=== PATIENT | female | born 1950 | race Caucasian/White ===

== ENCOUNTER 2017-04-21 08:33 | Inpatient (IN) | payer MEDICARE, OTHER ==
[2017-04-21] MEDS ORDERED: HYDROMORPHONE 1 MG/ML SYRINGE IV PRN (12:41)
[2017-04-21] MEDS ORDERED: NALOXONE HYDROCHLORIDE 0.4 MG/ML SOL IV PRN (12:41)
[2017-04-21] MEDS ORDERED: MORPHINE SULFATE 10 MG/ML SOL IV PRN (13:06)
[2017-04-21] MEDS ORDERED: NICOTINE 21 MG PATCH TD PRN (13:08)
[2017-04-21] MEDS: SODIUM CHLORIDE 0.9% 1000ML 1,000 ML IV SCH ×2 (13:11→14:09)
[2017-04-21] MEDS: SODIUM CHLORIDE 0.9% FLUSH 10 ML SOL IV PRN ×2 (13:11→14:30)
[2017-04-21] MEDS ORDERED: ONDANSETRON HCL 4 MG/2 ML SOL IV PRN (13:13)
[2017-04-21] MEDS: ENOXAPARIN 40 MG SOL SC SCH (13:24)
[2017-04-21] MEDS ORDERED: LABETALOL HYDROCHLORIDE 5 MG/ML SOL IV PRN (13:27)
[2017-04-21] MEDS: SOLUMEDROL 125 MG/2 ML 125 MG/2 ML PDS IV SCH ×2 (14:30→20:31)
[2017-04-21] MEDS: DEXTROSE/SALINE 0.45%/KCL10MEQ 1,000 ML/1,000 ML SOL IV SCH ×3 (15:19→23:48)
[2017-04-22] MEDS: DEXTROSE/SALINE 0.45%/KCL10MEQ 1,000 ML/1,000 ML SOL IV SCH ×2 (03:52→16:57)
[2017-04-22 07:18] LABS: BASOPHILS % (AUTO) 0 % (0-3); EOSINOPHILS % (AUTO) 0 % (0-9); HEMATOCRIT 32 % (35-47); MEAN CORPUSCULAR HGB CONC 38.2 gm/dl (32.0-36.0); MEAN CORPUSCULAR VOLUME 87 fL (81-99); MONOCYTES % (AUTO) 5.2 % (0-12); NEUTROPHILS % (AUTO) 77.3 % (37-80)
[2017-04-22 07:30] LABS: ALBUMIN 2.6 gm/dl (3.4-5.0); POTASSIUM 4.4 mMol/L (3.5-5.1)
[2017-04-22] MEDS ORDERED: DEXTROSE/SALINE 0.45%/KCL10MEQ 1,000 ML/1,000 ML SOL IV SCH (07:35)
[2017-04-22 07:36] LABS: ANISOCYTOSIS SLIGHT AMT
[2017-04-22] MEDS ORDERED: APAP/HYDROCODONE 325/5 TAB PO PRN (07:38)
[2017-04-22] MEDS: SODIUM CHLORIDE 0.9% 1000ML 1,000 ML IV SCH ×3 (08:55→20:14)
[2017-04-22] MEDS: ASPIRIN EC 81 MG PO SCH (10:01)
[2017-04-22] MEDS: LISINOPRIL 20 MG TAB PO SCH (10:02)
[2017-04-22] MEDS: SOLUMEDROL 125 MG/2 ML 125 MG/2 ML PDS IV SCH ×2 (10:02→20:09)
[2017-04-22] MEDS: METOPROLOL TARTRATE 25 MG TAB PO SCH ×2 (10:02→20:09)
[2017-04-22] MEDS: ENOXAPARIN 40 MG SOL SC SCH (14:41)
[2017-04-22] MEDS: SODIUM CHLORIDE 0.9% FLUSH 10 ML SOL IV PRN (15:45)
[2017-04-22] MEDS ORDERED: PRAVASTATIN SODIUM 20 MG TAB PO SCH (21:00)
[2017-04-23 02:08] VITALS: O2SAT 97
[2017-04-23] MEDS: SODIUM CHLORIDE 0.9% 1000ML 1,000 ML IV SCH ×2 (02:27→09:22)
[2017-04-23 07:24] LABS: BASOPHILS % (AUTO) 0 % (0-3); EOSINOPHILS % (AUTO) 0 % (0-9); HEMATOCRIT 33 % (35-47); MEAN CORPUSCULAR VOLUME 89 fL (81-99); MONOCYTES % (AUTO) 4.1 % (0-12); NEUTROPHILS % (AUTO) 83.4 % (37-80)
[2017-04-23 07:47] VITALS: BP 150/77; PULSE 66; RESP 16; TEMP 97.9
[2017-04-23 07:50] LABS: ALBUMIN 2.9 gm/dl (3.4-5.0); CALCIUM 8.4 mg/dl (8.5-10.1)
[2017-04-23] MEDS ORDERED: PNEUMOCOCCAL VACCINE 0.5 ML SOL IM ONE (08:28)
[2017-04-23] MEDS: LISINOPRIL 20 MG TAB PO SCH (08:42)
[2017-04-23] MEDS: ASPIRIN EC 81 MG PO SCH (08:42)
[2017-04-23] MEDS: METOPROLOL TARTRATE 25 MG TAB PO SCH (08:42)
== END 2017-04-23 09:40 | disposition home or self-care (01) | DRG 440 ==
LOC: RAD 08:33 → EDSTATUS 09:00 → UNDOADMIN 12:19 → ACUTE CARE 12:19
PROVIDERS: ADMIT Family Medicine; ATTEND Nurse Practitioner
DX: K85.90 Acute pancreatitis without necrosis or infection, unspecified (principal); I10 Essential (primary) hypertension; Z72.0 Tobacco use
CPT/HCPCS: 36415; 74183; 80053; 80061; 85025; 90732; J1650; J2930; A9575

== ENCOUNTER 2017-09-20 09:40 | Day surgery (SDC) | payer MEDICARE, OTHER ==
[~2017-09-20 09:40] MED LIST: LIDOCAINE HCL 1% MPF SOL ONE; PROPOFOL 500 MG/50 ML EMU IV ONE
[2017-09-20 11:27] VITALS: RESP 20; O2SAT 96
[2017-09-20 11:46] VITALS: BP 128/65; PULSE 75; TEMP 97.4
== END 2017-09-20 12:00 | disposition home or self-care (01) | DRG 392 ==
LOC: SURG 09:40
PROVIDERS: ATTEND Surgery
DX: K52.831 Collagenous colitis (principal)
CPT/HCPCS: J2001; J2704

== ENCOUNTER 2018-07-02 13:21 | Emergency (ER) | payer OTHER ==
[2018-07-02] MEDS ORDERED: CLOPIDOGREL 75 MG TAB ONE (13:25)
[2018-07-02] MEDS ORDERED: NITROGLYCERIN 0.4 MG TAB SL PRN (13:34)
[2018-07-02] MEDS ORDERED: SODIUM CHLORIDE 0.9% FLUSH 10 ML SOL IV PRN ×2 (13:34→13:40)
[2018-07-02] MEDS ORDERED: ASPIRIN 81 MG CHEWABLE CTB PO STA (13:34)
[2018-07-02] MEDS ORDERED: MORPHINE SULFATE 10 MG/ML SOL IV PRN (13:34)
[2018-07-02] MEDS ORDERED: HEPARIN SODIUM 5000 U/ML SOL ONE ×2 (13:37→13:39)
[2018-07-02] MEDS ORDERED: CLOPIDOGREL 75 MG TAB PO ONE (13:40)
[2018-07-02] MEDS ORDERED: HEPARIN SODIUM 5000 U/ML SOL IV ONE (13:40)
[2018-07-02 13:41] LABS: BASOPHILS % (AUTO) 1 % (0-3); EOSINOPHILS % (AUTO) 2 % (0-9); HEMATOCRIT 35 % (35-47); HEMOGLOBIN 11.7 gm/dl (12.0-15.5); LYMPHOCYTES % (AUTO) 43.5 % (10-50); MEAN CORPUSCULAR HEMOGLOBIN 31.5 pg (27.0-32.0); MEAN CORPUSCULAR HGB CONC 33.5 gm/dl (32.0-36.0); MEAN CORPUSCULAR VOLUME 94 fL (81-99); MONOCYTES % (AUTO) 9.2 % (0-12); NEUTROPHILS % (AUTO) 43.9 % (37-80)
[2018-07-02] MEDS ORDERED: HEPARIN SODIUM 5000 U/ML 25,000 U in DEXTROSE 250 ML 250 ML IV SCH (13:45)
[2018-07-02] MEDS ORDERED: NITROGLYCERIN 0.4 MG TAB SL ONE (13:47)
[2018-07-02 14:01] LABS: ALBUMIN 2.9 gm/dl (3.4-5.0); BILIRUBIN,TOTAL 0.3 mg/dl (0.2-1.0); CALCIUM 7.9 mg/dl (8.5-10.1); CARBON DIOXIDE 19.6 mEq/L (21-32); CREATININE 1.09 mg/dl (0.60-1.00); POTASSIUM 3.5 mMol/L (3.5-5.1); TOTAL PROTEIN 5.5 gm/dl (6.4-8.2); TROP I 0.023 ng/ml (0.000-0.056)
[2018-07-02 15:05] VITALS: RESP 20; TEMP 97; O2SAT 100
[2018-07-02 16:02] VITALS: BP 105/64; PULSE 70
== END 2018-07-02 14:15 | disposition short-term general hospital (02) | DRG 282 ==
LOC: ED 13:21
DX: I21.11 ST elevation (STEMI) myocardial infarction involving right coronary artery (principal)
CPT/HCPCS: 36415; 71045; 80053; 82550; 84484; 85025; 85610; 85730; 93005; 96374; 99291; J1644; A9270-GY